=== PATIENT | male | born 1955 | race Caucasian/White ===

== ENCOUNTER → 2016-10-04 | Outpatient (CLI) | payer BC ==
[~2016-10-04] MED LIST: LISI40TA PO; MULT-506 PO; NAPR1TAB9 PO; SERT-234 PO; SIMV80TA2 PO
--- NOTE | 2016-10-05 06:06 | PAP/PSG TECHNICIAN REPORT ---
[facility] [employer] Polysomnogram Report Study name: None Report date: 10/05/2016 Study date: 10/04/2016 Referring Physician: DR. VALADEZ Name: ALEXA LUNA Interpreting Physician: Chidi Valadez D.O. Date of : 1955 [employer] Crewman: Dotty Tipton [facility]. Sex: Male Age: 61 StudyType: PSG PAP Weight: 238 lbs Height: 61 years, Height 5' 8" BMI: 36.18 Medications: ALEVE, LISINOPRIL 40 MG, SERTRALINE 100 MG, SIMVASTATIN Patient History 61 yr. old male here for a new titration sleep study. Patients PSG was done on 08/04/16 and had an AHI of 8.8, with significant PLM arousals. Parameters Monitored NPSG: E1-M2, E2-M1, Fp1-M2, Fp2-M1, F3-M2, F4-M2, F4-M1, C3-M2, C4-M2, C4-M1, O1-M2, O2-M2, O2-M1, T3-M2, T4-M1, P3-M2, P4-M1, CHIN1, CHIN2, HR, EKG, Legs, PFLOW, SNOR, FLOW, CFLOW, Tidal Volume, THOR, ABDO, SpO2, PLTH, CPRESS, ETCO2 Wave, ETCO2, pH Sleep Architecture Sleep Stages Time at Lights Off 9:14:24 PM STAGES Time (min.) TST (%) Time at Lights On 5:52:24 AM Wake 37.0 -- Total Recording Time (TRT) 518.50 min. N1 51.5 11 Total Sleep Period (TSP) 513.5 min. N2 234.5 49 Total Sleep Time (TST) 481.0min. N3 88.0 18 Awake Time 37.0 min. REM 107.0 22 Wake after Sleep Onset 32.5 min. Sleep Efficiency (SE) 93 % Sleep Onset Latency (DIANA) 4.5 min. Number of Stage 1 Shifts None Awakenings 20 Stage Changes 99 Number of REM periods 5 REM 107.0 22 REM Latency 270.0 min. NREM 374.0 78 Body Position Analysis Supine Right Left Side Prone Vertical Total Sleep Time (min.) 7.5 233.6 241.9 475.50 0.0 0.0 Total Sleep Time (%) 1% 49% 50% 99 0% N/A% Total Sleep Time REM (min.) 0.0 41.0 66.0 None 0.0 0.0 Total Sleep Time NREM (min.) 5.5 192.6 175.9 None 0.0 0.0 Intermittent Wake (min.) 2.0 10.5 24.5 None 0.0 0.0 Total Sleep Period (%) 1% None None None None None Arousals Myoclonus (PLM) * Events Count Index Events Count Index Spontaneous 1 0 Events Awake (PLMW) 54 87.6 Respiratory 0 0.0 Events Asleep w/ Arousal (PLMA) 36 4.5 PLM 36 4 Events Asleep w/o Arousal (PLMS) 260 32.4 Snoring 4 0 Total Asleep 296 36.9 Total 40 5 Total 350 41 Respiratory Analysis * CA OA MA CH H RERA Total Count 0 0 0 0 23 0 23 Index 0.0 0.0 0.0 0 2.9 0 2.9 Mean Duration 0.0 0.0 0.0 0.00 29.8 0.0 29.8 Longest Duration 0.0 0.0 0.0 0.00 0.0 0.0 56.1 Respiratory Event Summary Total Supine ~Supine Right Left Prone REM NREM Apneas Count 0 0 0 0 0 N/A 0 0 Index 0.0 0 0 0.0 0.0 N/A 0 0 Hypopneas (4% Desat) Count 23 0 23 2 21 N/A 16 7 Index 2.9 0.0 3 0.5 5.2 N/A 9.0 1.1 Apneas & All Hypopneas Count 23 0 23 2 21 N/A 16 7 Index 2.9 0 3 1 5 N/A 9.0 1.1 Respiratory Events ([employer] Of [employer]+All Hyp+RERA) Count 23 0 23 2 21 N/A 16 7 Index 2.9 0 3 0.5 5.2 N/A 9.0 1.1 Respiratory Related Arousal Count 0 0 0 0 0 N/A 0 0 Index 0.0 0 0 0 0 N/A 0 0 Snoring Analysis Supine Right Left Prone REM NREM Total Snore duration 29.4 min Snores count 0 790 619 N/A 322 1,087 1,409 Snore mean duration 1.3 Sec Snores index 0 203 154 N/A 180.6 174.4 175.8 TST with snoring (%) 6.1% Desaturation Event Summary: Minimum %SpO2 Event Count Mean/Min/Max Duration(sec.) Desaturation Index % Time In Bed > 90 25 30.5 / 10.3 / 51.5 6.1 50.1 86 - 90 13 18.3 / 6.8 / 44.3 3.2 49.8 81 - 85 0 N/A 0.0 0.1 76 - 80 0 N/A 0.0 0.0 71 - 75 0 N/A 0.0 0.0 66 - 70 0 N/A 0.0 0.0 61 - 65 0 N/A 0.0 0.0 56 - 60 0 N/A 0.0 0.0 51 - 55 0 N/A 0.0 0.0 < 50 0 N/A 0.0 0.0 Total REM NREM Awake <50% 0.0 min. 0.0 min. 0.0 min. 0.0 min. 51 - 60% 0.0 min. 0.0 min. 0.0 min. 0.0 min. 61 - 70% 0.0 min. 0.0 min. 0.0 min. 0.0 min. 71 - 80% 0.0 min. 0.0 min. 0.0 min. 0.0 min. 81 - 90% 245.0 min. 24.8 min. 212.5 min. 7.7 min. 91 - 100% 245.5 min. 82.2 min. 142.3 min. 20.9 min. Average 91 91 90 91 Minimum SpO2 84 84 85 87 Desaturation Event Index 3.4 10.1 1.3 4.9 # Desat. Events below 89% 19 12 6 1 Time(%) with Saturation below 89% 10.2 0.8 8.9 0.5 Time(min.) with Saturation below 89% 49.8 3.7 43.8 2.3 Time (mins) REM (mins) NREM (mins) % of TST SpO2 Below 90% 24 17 N7 26.1 SpO2 Below 88% 7 0 0 2 Heart Rate Analysis Min (bpm) Max (bpm) Average (bpm) Awake 45 89 73 NREM 46 127 61 REM 42 79 55 Overall 42 127 60 Supplemental O2 Values Minimum O2 level: None Value Start Time End Time [employer] Comments Mr. Luna slept in the right, left, and supine positions. Cardiac arrhythmia and PLMs noted. No bruxism noted. CPAP was initiated at +4 CMH2O room air and up-titrated to an optimal level of + 10 CMH2O Cflex 2, which nearly eliminated all respiratory events and snoring. The night was started using an Eson 2, and was switched to a Medium Simplus full face, he felt he was swallowing air with the nasal mask. Mr. Luna awoke to use the restroom once during the night. Mr. Luna stated, "I woke up a lot The final report will be interpreted and signed by a sleep physician. The completed physician report will then be placed in the patient medical record. Therapy Event: Therapy (cm H20) 4 5 6 7 8 9 10 Total Time at Pressure (min.) 90.0 29.5 87.4 80.1 14.4 28.0 188.6 TST at Pressure (min.) 81.0 29.5 66.9 78.6 14.4 28.0 182.6 # Periods 1 1 1 1 1 1 1 Sleep Onset (min.) 4.5 0.0 0.0 0.0 0.0 0.0 0.0 REM Onset (min.) N/A N/A N/A 67.6 0.0 0.0 0.0 Sleep Efficiency % 90 100 76 98 100 100 96 Wakefulness (%) 10.0 0.0 23.5 1.9 0.0 0.0 3.2 Wakefulness (min.) 9.0 0.0 20.5 1.5 0.0 0.0 6.0 NREM 1 (%) 16.1 1.7 17.0 12.6 0.0 3.6 5.6 NREM 1 (min.) 14.5 0.5 14.9 10.1 0.0 1.0 10.5 NREM 2 (%) 68.9 37.2 53.8 51.8 0.0 0.0 38.7 NREM 2 (min.) 62.0 11.0 47.0 41.5 0.0 0.0 73.0 NREM 3 (%) 5.0 61.1 5.7 18.1 0.0 0.0 24.4 NREM 3 (min.) 4.5 18.0 5.0 14.5 0.0 0.0 46.0 REM (%) 0.0 0.0 0.0 15.6 100.0 96.4 28.2 REM (min.) 0.0 0.0 0.0 12.5 14.4 27.0 53.1 # Arousals 6 2 15 5 0 1 11 Arousal Index 4.4 4.1 13.4 3.8 0.0 2.1 3.6 # Snore 75 193 348 316 88 142 247 Snore Index 55.6 392.9 312.0 241.2 366.9 304.3 81.2 AHI 0.7 2.0 0.9 6.9 25.0 6.4 0.7 AHI Supine N/A N/A 0.0 N/A N/A N/A N/A AHI Non-Supine 0.7 2.0 1.0 6.9 25.0 6.4 0.7 NREM AHI 0.7 2.0 0.9 0.9 N/A 60.0 0.9 REM AHI N/A N/A N/A 38.4 25.0 4.4 0.0 RDI 0.7 2.0 0.9 6.9 25.0 6.4 0.7 # Obstructive 0 0 0 0 0 0 0 # Central Ap 0 0 0 0 0 0 0 # Mixed 0 0 0 0 0 0 0 # Hypopneas 1 1 1 9 6 3 2 RERAS 0 0 0 0 0 0 0 Total Respiratory Events 1 1 1 9 6 3 2 Time Below SpO2 89.00% (min.) 6.7 9.3 23.3 2.1 2.0 0.0 4.1 Mean NREM SpO2 (%) 90 89 89 91 N/A 94 91 Mean REM SpO2 (%) N/A N/A N/A 90 91 92 92 Mean Sleep SpO2 (%) 90 89 89 91 91 92 91 Min NREM SpO2 (%) 87 85 86 88 N/A 91 86 Min REM SpO2 (%) N/A N/A N/A 84 86 90 89 Position Supine (min.) 0.0 0.0 5.5 0.0 0.0 0.0 0.0 Position Non-supine (min.) 81.0 29.5 61.4 78.6 14.4 28.0 182.6 LM Index Sleep 60.0 67.2 60.1 20.6 8.3 19.3 25.3 LM Index NREM 60.0 67.2 60.1 20.9 N/A 60.0 31.5 LM Index REM N/A N/A N/A 19.2 8.3 17.8 10.2 Mean Heart Rate (bpm) 64 63 68 65 62 58 53 Min Heart Rate (bpm) 59 58 58 55 53 50 42
--- NOTE | 2016-10-06 13:46 | POLYSOMNOGRAPH REPORT ---
The patient underwent an additional nocturnal polysomnogram on 10/04/2016. He previously had a sleep study done on the 04 of August that revealed an AHI of 8.8 with significant arousals with limb movements as well. He is referred by Dr. Corrales. This study is done to treat the obstructive sleep apnea with CPAP. Total recording time was 518.5 minutes. Total sleep period was 513.5 minutes with a total sleep time of 481 minutes. Wake after sleep onset was 32.5 minutes with a sleep efficiency of 93%. Sleep onset latency was very abrupt at 4.5 minutes. There were 99 sleep stage changes, 5 REM periods with REM latency of 270 minutes. Sleep stages included 11% N1, 49% N2, 18% N3 and 22% REM. There were 40 arousals during this study, 4 with snoring, 36 with limb movements, and 1 for nonspecific reasons. The patient was placed on CPAP and eventually was increased to CPAP of 10 with C-Flex of 2. He had 23 episodes of hypopnea with no other events noted. The AHI is 2.9. Lowest oxygen saturation was 84% during REM sleep. He spent 7 minutes with a saturation below 88%. With treatment, the AHI is 0.7 with an oxygen saturation of 92%. Bradycardia down to 42 beats per minute was noted during REM with a maximum heart rate of 89 beats per minute and an average of 73 beats per minute. The rhythm strips reveal a predominant normal sinus rhythm and occasional premature ventricular contraction with no sustained tachyarrhythmia noted. The patient states he slept fairly well and awakened once to use the restroom. I thought he awakened quite a bit at night as well. This study suggests the patient responds well to CPAP with a final setting of continuous positive airway pressure of 10 cm of water with C-Flex of 2. He was treated with a medium size Simplus full facemask. Considerable number of limb movements were noted as well (36) that caused arousals with arousal index of 4.5. This suggests he has periodic limb movement disorder. Often that will improve with the treatment with CPAP.
== END | disposition home or self-care (01) ==
LOC: C.NEUR 20:00
PROVIDERS: ATTEND Internal Medicine Pulmonary Disease
DX: G47.33 Obstructive sleep apnea (adult) (pediatric) (principal)

== ENCOUNTER → 2016-11-13 | Day surgery (SDC) | payer BC ==
[2016-11-06 11:40] VITALS: BMI 36.0
[~2016-11-13] VITALS: Ht 170.2 cm; Wt 106.8 kg
[~2016-11-13] MED LIST changes: +LIDOCAINE HCL 2% 2 ML VIAL (20MG/ML) ONE; +PROPOFOL IV EMULSION 10 MG/ML 20 ML VIAL IV ONE; +SODIUM CHLORIDE 0.9% 500ML 500 ML IV ONE
[2016-11-13 13:18] VITALS: Ht 170.2 cm; Wt 106.8 kg
--- NOTE | 2016-11-13 13:51 | Endo History and Physical ---
History & Physical Date of Service: Nov 13, 2016. Chief Complaint: screening Referring Physician: DR. CROUCH History of Present Illness 61 yo CM who presents for screening colonoscopy. Past Surgical History Hx Cardiac Surgery: No Hx Internal Defibrillator: No Hx Pacemaker: No Hx Abdominal Surgery: Yes (HERNIA REPAIR) Hx of Implantable Prosthesis: No Hx Post-Op Nausea and Vomiting: No Hx Cancer Surgery: No Hx Thoracic Surgery: No Hx Orthopedic: Yes (L/R TKA, LOW BACK SURGERY, L/R CTR, LT SHOULDER) Hx Urinary Tract Surgery: No Family History Colon CA Social History Smoking Status: Never Smoker Hx Substance Use: No Hx Alcohol Use: No Allergies Coded Allergies: No Known Allergies (Verified , 11/13/16) Current Medications Reported Home Medications Medications Dose Route/Sig Max Daily Dose Days Date Category Multivitamin (Multivitamins) Tab 1 Tab PO QAM 11/15/12 Reported Aleve (Naproxen) 220 Mg Tab 2 Tablets PO QAM PRN 12/01/08 Reported Zoloft (Sertraline HCl) 100 Mg Tab 1 Tab PO BID 12/01/08 Reported Zestril (Lisinopril) 40 Mg Tab 40 Mg PO HS 12/01/08 Reported Zocor (Simvastatin) 80 Mg Tab 80 Mg PO HS 12/01/08 Reported Vital Signs Weight (Kilograms): 106.82 Height (Feet): 5 Height (Inches): 7 Date Time Temp Pulse Resp B/P Pulse Ox O2 Delivery O2 Flow Rate FiO2 11/13/16 13:19 36.4 60 18 161/83 97 Room Air Physical Exam General Appearance: WD/WN, no apparent distress Respiratory/Chest: Auscultation: breath sounds normal Cardiovascular: Heart Auscultation: RRR Abdomen: Bowel Sounds: normal Inspection & Palpation: soft, non-distended, no tenderness, guarding & rebound Assessment and Plan Assessment: 61 yo CM who presents for screening colonoscopy. Plan: Proceed with colonoscopy.
--- NOTE | 2016-11-13 14:21 | Discharge Instructions ---
Endoscopy Patient Instructions Date / Procedure(s) Performed Nov 13, 2016. Colonoscopy Allergy Information Coded Allergies: No Known Allergies (Verified , 11/13/16) Discharge Date / Findings Nov 13, 2016. Diverticulosis Internal hemorrhoids Medication Instructions OK to resume all medications today as prescribed. Reported Home Medications Medications Dose Route/Sig Max Daily Dose Days Date Category Multivitamin (Multivitamins) Tab 1 Tab PO QAM 11/15/12 Reported Aleve (Naproxen) 220 Mg Tab 2 Tablets PO QAM PRN 12/01/08 Reported Zoloft (Sertraline HCl) 100 Mg Tab 1 Tab PO BID 12/01/08 Reported Zestril (Lisinopril) 40 Mg Tab 40 Mg PO HS 12/01/08 Reported Zocor (Simvastatin) 80 Mg Tab 80 Mg PO HS 12/01/08 Reported Provider Instructions Activity Restrictions - No exercising or heavy lifting for 24 hours. - Do not drink alcohol the day of the procedure. - Do not drive a car or operate machinery until the day after the procedure. - Do not make any important decisions or sign important papers in 24 hours after the procedure. Following Day: - Return to full activity which may include returning to work/school. Diet Start your diet with liquids and light foods (jello, soup, juice, toast). Then eat your usual diet if not nauseated. Treatment For Common After Affects For mild abdominal pain, bloating, or excessive gas: - Rest - Eat lightly - Lie on right side Follow-Up Information Follow-up with DR. CROUCH as scheduled Anesthesia Information What You Should Know You have had a procedure that required some medicine to reduce anxiety and discomfort. This treatment is called moderate sedation. After receiving the treatment, you may be sleepy, but you will be able to breathe on your own. The effects of the treatment may last for several hours. Follow these instructions along with Activity/Diet recommendations noted above: * Do NOT do anything where dizziness or clumsiness would be dangerous. * Rest quietly at home today, then you can be up and about tomorrow. * Have a responsible person stay with you the rest of today. * You may have had an I.V. today. If so, you may take the dressing off later today. Recommendations Call your doctor if: * Trouble breathing * Continuous vomiting for more than 24 hours * Temperature above 101 degrees * Severe abdominal pain or bloating * Pain not relieved by pain medicine ordered * There is increased drainage or redness from any incision * A large amount of rectal bleeding greater than 2-3 tablespoons. (If you had a polyp/s removed or have hemorrhoids, a small amount of blood - from the rectum is to be expected.) * You have any unanswered questions or concerns. IN THE EVENT OF A SERIOUS EMERGENCY, GO TO THE NEAREST EMERGENCY ROOM Your discharge instructions were prepared by provider Alberto Turner. Patient Instructions Signature Page Aniket Melvin Patient (or Guardian) Signature/Date: I have read and understand the instructions given to me by my caregivers. Caregiver/RN/Doctor Signature/Date: The above-named patient and/or guardian has received patient instructions on this date. + Original Patient Signature Page (only) stays with chart. Please make copy for patient.
--- NOTE | 2016-11-13 14:29 | GI REPORT ---
Procedure Date: 11/13/2016 1:52 PM Procedure: Colonoscopy Indications: Screening for colorectal malignant neoplasm Medicines: Monitored Anesthesia Care Complications: No immediate complications. Estimated Blood Loss: Estimated blood loss: none. Procedure: Pre-Anesthesia Assessment: - Prior to the procedure, a History and Physical was performed, and patient medications and allergies were reviewed. The patient's tolerance of previous anesthesia was also reviewed. The risks and benefits of the procedure and the sedation options and risks were discussed with the patient. All questions were answered, and informed consent was obtained. Prior Anticoagulants: The patient has taken no previous anticoagulant or antiplatelet agents. ASA Grade Assessment: II - A patient with mild systemic disease. After reviewing the risks and benefits, the patient was deemed in satisfactory condition to undergo the procedure. After I obtained informed consent, the scope was passed under direct vision. Throughout the procedure, the patient's blood pressure, pulse, and oxygen saturations were monitored continuously. The scope was introduced through the anus and advanced to the terminal ileum. The colonoscopy was performed without difficulty. The patient tolerated the procedure well. The quality of the bowel preparation was good. The terminal ileum, ileocecal valve, appendiceal orifice, and rectum were photographed. Findings: Multiple small-mouthed diverticula were found in the sigmoid colon. Non-bleeding internal hemorrhoids were found during retroflexion. The hemorrhoids were small. Impression: - Diverticulosis in the sigmoid colon. - Non-bleeding internal hemorrhoids. - No specimens collected. Recommendation: - Resume previous diet. - Continue present medications. - Repeat colonoscopy in 10 years for surveillance. - Return to primary care physician as previously scheduled. Alberto Turner, DO 11/13/2016 2:29:43 PM This report has been signed electronically. Note Initiated On: 11/13/2016 1:52 PM I attest to the content of the Intraoperative Record and orders documented therein, exceptions below
[2016-11-13 14:48] VITALS: BP 141/78; PULSE 56; O2SAT 96
--- NOTE | 2016-11-13 14:57 | Anesthesiology Progress Note ---
Anesthesia Post Op Note Date & Time Nov 13, 2016 at 14:57 Vital Signs Pain Intensity: 0 Vital Signs Past 12 Hours Date Time Temp Pulse Resp B/P Pulse Ox O2 Delivery O2 Flow Rate FiO2 11/13/16 14:48 56 16 141/78 96 Room Air 11/13/16 14:33 61 16 127/75 96 Room Air 11/13/16 14:18 60 14 113/63 94 Room Air 11/13/16 13:19 36.4 60 18 161/83 97 Room Air Notes Mental Status: alert / awake / arousable, participated in evaluation Pt Amnestic to Procedure: Yes Nausea / Vomiting: adequately controlled Pain: adequately controlled Airway Patency, RR, SpO2: stable & adequate BP & HR: stable & adequate Hydration State: stable & adequate Anesthetic Complications: no major complications apparent
== END | disposition home or self-care (01) ==
LOC: C.GI 13:06
PROVIDERS: ATTEND Internal Medicine
DX: Z12.11 Encounter for screening for malignant neoplasm of colon (principal); Z80.0 Family history of malignant neoplasm of digestive organs; K57.30 Diverticulosis of large intestine without perforation or abscess without bleeding; K64.8 Other hemorrhoids; Z98.890 Other specified postprocedural states

== ENCOUNTER → 2017-09-14 | Outpatient (CLI) | payer BC ==
[~2017-09-14] MED LIST changes: -LIDOCAINE HCL 2% 2 ML VIAL (20MG/ML) ONE; -PROPOFOL IV EMULSION 10 MG/ML 20 ML VIAL IV ONE; -SODIUM CHLORIDE 0.9% 500ML 500 ML IV ONE
--- NOTE | 2017-09-14 11:23 | DIAGNOSTIC IMAGING REPORT ---
CHEST 2 VIEWS ROUTINE HISTORY: 62 years-old Male R05 [id number] Chronic obstructive [id number] COPD with acute cough COMPARISON: Chest CT 04/06/2015, chest radiograph 03/15/2014 TECHNIQUE: PA and lateral views of the chest FINDINGS: Cardiac mediastinal and hilar silhouettes are within normal limits. Linear subsegmental bibasilar opacities are noted without pneumothorax, pleural effusion or lobar airspace consolidation. No overt pulmonary edema. Bones of the chest are grossly intact. Multilevel endplate spurring of the spine. IMPRESSION: Linear subsegmental bibasilar opacities suggest atelectasis and/or scarring. The above report was generated using voice recognition software. It may contain grammatical, syntax or spelling errors. Electronically signed by: Ari Leon M.D. 09/14/2017 11:22 AM Dictated Date/Time: 09/14/2017 11:21 AM
== END | disposition home or self-care (01) ==
LOC: C.RAD1850 10:39
PROVIDERS: ATTEND Internal Medicine Pulmonary Disease
DX: J44.9 Chronic obstructive pulmonary disease, unspecified (principal); R05 Cough

== ENCOUNTER → 2017-10-08 | Outpatient (CLI) | payer OTHER ==
--- NOTE | 2017-10-08 18:07 | DIAGNOSTIC IMAGING REPORT ---
ORBITS FOR MRI HISTORY: Pre-MRI pre-MRI screening. COMPARISON: None. FINDINGS: There are no radiopaque foreign bodies identified within the orbits. IMPRESSION: No radiopaque foreign bodies identified within the orbits. The above report was generated using voice recognition software. It may contain grammatical, syntax or spelling errors. Electronically signed by: Aldo Santos M.D. 10/08/2017 6:05 PM Dictated Date/Time: 10/08/2017 6:05 PM
--- NOTE | 2017-10-08 19:18 | DIAGNOSTIC IMAGING REPORT ---
CERVICAL WITHOUT CONTRAST HISTORY: Pain. Neuropathy. R20.0 Numbness TECHNIQUE: Multiplanar multisequence MRI of the cervical spine was performed without the use of contrast. COMPARISON STUDY: None. FINDINGS: Normal signal characteristics of the vertebral bodies. Moderate degenerative disc signal throughout the entire cervical region. Multilevel bulging disc based on the sagittal images. C2-C3: Mild broad-based right central bulging disc. Mild narrowing right neuroforamina. No significant impact upon the cervical cord. C3-C4: Broad-based bulging disc showing contact with but no deformity of the cervical cord. Significant narrowing of the neuroforamina bilaterally. C4-C5: Broad-based bulging disc with significant osteophytic narrowing of the neuroforamina bilaterally. C5-C6: Mild left central disc herniation with minimal impact left anterior cervical cord. Significant narrowing of the neuroforamina bilaterally. C6-C7: Broad-based bulging disc showing no significant impact with cervical cord. Moderate narrowing of the neuroforamina bilaterally. C7-T1: Minimal osteophytic narrowing of the neuroforamina bilaterally. IMPRESSION: 1. Broad-based bulging discs and/or mild disc herniations at virtually all levels of the cervical spine. 2. No evidence for a major disc herniation. 3. Multifactorial narrowing of the bulk of the neuroforamina bilaterally which is considered significant at multiple levels. Correlation with neurologic analysis and or EMG is suggested. The above report was generated using voice recognition software. It may contain grammatical, syntax or spelling errors. Electronically signed by: Aldo Santos M.D. 10/08/2017 7:17 PM Dictated Date/Time: 10/08/2017 7:14 PM
== END | disposition home or self-care (01) ==
LOC: C.MRI 17:32
PROVIDERS: ATTEND Internal Medicine
DX: M48.00 Spinal stenosis, site unspecified (principal); Z87.821 Personal history of retained foreign body fully removed; R20.0 Anesthesia of skin

== ENCOUNTER → 2018-04-16 | Outpatient (CLI) | payer OTHER ==
[2018-04-16 09:26] LABS: BASO % 0.3 %; BASO ABS # 0.02 K/uL (0-0.2); EOS % 1.7 %; HEMATOCRIT 41.5 % (42-52); HEMOGLOBIN 13.1 g/dL (14.0-18.0); IG# 0.02 K/uL (0.00-0.02); LYMPH % 23.9 %; MEAN CELL VOLUME 89.6 fL (80-100); MEAN CORPUSCULAR HEMOGLOBIN 28.3 pg (25-34); MEAN CORPUSCULAR HGB CONC 31.6 g/dl (32-36); MEAN PLATELET VOLUME 10.7 fL (7.4-10.4); MONO % 5.6 %; MONO ABS # 0.33 K/uL (0.11-0.59); NEUT % 68.2 %; PLATELET COUNT 123 K/uL (130-400); RED CELL DISTRIBUTION WIDTH CV 14.6 % (11.5-14.5); RED CELL DISTRIBUTION WIDTH SD 47.8 fL (36.4-46.3); WHITE BLOOD COUNT 5.87 K/uL (4.8-10.8)
--- NOTE | 2018-04-16 12:00 | DIAGNOSTIC IMAGING REPORT ---
BONE SCAN 3 PHASE LIMITED CLINICAL HISTORY: 62 years-old Male presenting with HX LT KNEE REPLACEMENT, R/O ASEPTIC LOOSENING. TECHNIQUE: Following the IV administration of 26.7 mCi of technetium 99m MDP, three-phase bone scan of the knees was performed. Anterior flow images as well as anterior and posterior blood pool phase images were acquired. Bone phase imaging of knees was performed at three hours in multiple obliquities. COMPARISON: None. FINDINGS: On initial flow imaging, symmetric radiotracer distribution in the vasculature. Photopenic defects in the knees. Subtle asymmetric soft tissue hyperemia in the left knee. On subsequent blood pool phase imaging, significant asymmetric periarticular radiotracer avidity at the left knee in comparison to the right. On bone phase imaging, asymmetric greater radiotracer avidity surrounding the left knee prosthesis in comparison to the right knee prosthesis. This is most evident on anterior and posterior projections. Periarticular radiotracer distribution involves both the femoral and tibial components. IMPRESSION: Three-phase positive bone scan concerning for loosening or infection at the left total knee prosthesis. These could be differentiated with a sulfur colloid nuclear medicine scan of the knees to assess for marrow replacement process. Electronically signed by: Don Marsh M.D. 04/16/2018 11:59 AM Dictated Date/Time: 04/16/2018 11:54 AM
== END | disposition home or self-care (01) ==
LOC: C.NUCL 07:59
DX: Z96.652 Presence of left artificial knee joint (principal)

== ENCOUNTER 2018-11-18 08:28 | Inpatient (IN) ==
--- NOTE | 2018-11-05 15:34 | PAT Medication Instructions ---
Medication Instructions Date of Service November 05, 2018 Home Medications lisinopril 40 mg PO QPM multivitamin 1 tab PO QAM naproxen sodium [Aleve] 440 mg PO BID PRN sertraline 100 mg PO QPM [id number] mg PO QPM ASK your surgeon for instructions naproxen sodium [Aleve] 440 mg PO BID PRN DO NOT take the morning of surgery multivitamin 1 tab PO QAM Take evening before surgery sertraline 100 mg PO QPM [id number] mg PO QPM lisinopril 40 mg PO QPM Other Notes If you have any questions please call us at [phone] or [phone] or [phone] or [phone]
--- NOTE | 2018-11-08 09:12 | Anesthesiology Consultation ---
Date of Service November 08, 2018 Assessment & Plan (1) Encounter for pre-operative examination: Chart Review Chart Review: Acceptable Risk for Surgery and Patient seen in Pre Admission Testing Teaching & Discussion Pre-Anesthesia Teaching/Discussion Notes: Instructed NPO after midnight before surgery,except medications with 15 cc of water. Medication instructions provided according to the PAT guidelines. History Surgery Operation Date: 11/18/18 08:00 Proposed Procedures p Left Total Knee Revision - Iván Weller MD Height/Weight Height: 5 ft 8 in Weight: 117.7 kg Allergies Allergy/AdvReac Type Severity Reaction Status Date / Time No Known Allergies Allergy Unknown Verified 11/04/18 11:37 Medications Home Medications Medication Instructions Recorded Confirmed Last Taken lisinopril 40 mg PO QPM 11/04/18 11/04/18 Unknown multivitamin 1 tab PO QAM 11/04/18 11/04/18 Unknown naproxen sodium [Aleve] 440 mg PO BID PRN 11/04/18 11/04/18 Unknown sertraline 100 mg PO QPM 11/04/18 11/04/18 Unknown simvastatin 80 mg PO QPM 11/04/18 11/04/18 Unknown Past Medical History Medical History Depression High cholesterol Hypertension Obesity Sleep apnea CPAP- PATIENT ADVISED TO BRING DEVICE DOS Past Surgical History Surgical History History of back surgery History of carpal tunnel release of both wrists History of knee replacement, total B/L History of umbilical hernia repair Hx of repair of rotator cuff LEFT Past Anesthesia History No Family Hx of Anesthesia Complications and Other Slow to wake; no known history of reintubation. History of PONV No Motion Sickness Screening History of Motion Sickness: No Social History Smoking Status: Never smoker Do You Dip or Chew Tobacco: No Hx Alcohol Use: Yes Alcohol type: hard liquor alcohol intake frequency: a few times a month Hx Substance Use: No Exercise / Class Metabolic Activity III < 4 Walking/Shop/Light housework Review of Systems Occasional reflux. Patient denies chest pain, shortness of breath, cough, wheezing, palpitations. Physical Exam Vital Signs VITALS BP 168/82 P 60 TEMP 97.7 SP02 97%RA RESP 18 PHYSICAL Full neck and c-spine range of motion. Full TMJ range of motion. TMD 4 finger breaths Mallampati Score 2 Dentition: intact, crowns on molars Lungs: clear throughout to auscultation Cardiac: regular rate and rhythm, no murmurs noted Spine: normal Carotid arteries: negative bruit Extremities: no edema Testing Electrocardiogram Date: 11/08/18 SB at 57bpm. NS IVCD. Chest X-Ray Date: 11/08/18 Findings: + NAD There is mild thickening of the minor fissure versus perifissural atelectasis. There are minor atelectatic changes at the left lung base. Laboratory Results Blood Type O Positive 11/08/18 09:33 Antibody Screen NEGATIVE 11/08/18 09:33 PT 10.2 Seconds (9.0-12.0) 11/08/18 09:34 INR 1.0 (0.9-1.1) 11/08/18 09:34 APTT 27.6 Seconds (21.0-31.0) 11/08/18 09:34 Urine Color Dark Yellow 11/08/18 09:33 Urine Appearance Clear (Clear) 11/08/18 09:33 Urine pH 8.0 (4.5-7.5) H 11/08/18 09:33 Ur Specific Mason 1.022 (1.000-1.030) 11/08/18 09:33 Urine Protein Negative (Negative) 11/08/18 09:33 Urine Glucose (UA) Negative (Negative) 11/08/18 09:33 Urine Ketones Negative (Negative) 11/08/18 09:33 Urine Nitrite Negative (Negative) 11/08/18 09:33 Ur Leukocyte Esterase Negative (Negative) 11/08/18 09:33 10/29/18 WBC 5.8 H/H 13.2/40.2 PLATELETS 117 SODIUM 140 POTASSIUM 4.5 CHLORIDE 105 CO2 30 BUN 17 CREATININE 0.81 GLUCOSE 104
--- NOTE | 2018-11-08 09:55 | XRay Report ---
XR chest Pre-admission PA/Lat CLINICAL HISTORY: Preoperative chest COMPARISON STUDY: 09/14/2017 FINDINGS: The cardiac and mediastinal contours remain stable. There is mild thickening of the minor f issure versus perifissural atelectasis. There are minor atelectatic changes at the left lung base. Th ere is no lobar consolidation. There is no failure. There are no pleural effusions. IMPRESSION: No active disease in the chest. Electronically signed by: Otf Akers M.D. 11/08/2018 9:54 AM
[2018-11-08 10:24] LABS: Appearance Urine Clear (Clear); Bilirubin Urine Negative (Negative); Color Urine Dark Yellow; Glucose Urine UA Negative (Negative); Ketones Urine Negative (Negative); Leukocyte Esterase Urine Negative (Negative); Nitrite Urine Negative (Negative); Protein Urine Negative (Negative); Specific Gravity Urine 1.022 (1.000-1.030); Urobilinogen Urine Negative (Negative)
[2018-11-08 10:41] LABS: Partial Thromboplastin Ratio 1.1; Partial Thromboplastin Time 27.6 Seconds (21.0-31.0); Prothrombin Time 10.2 Seconds (9.0-12.0)
--- NOTE | 2018-11-17 10:20 | History and Physical Report ---
DATE OF ADMISSION: 11/18/2018 CHIEF COMPLAINT: Left knee pain status post total knee arthroplasty. HISTORY OF PRESENT ILLNESS: The patient is a 63-year-old gentleman presented for evaluation of his left knee pain and disability. He had a total knee arthroplasty approximately 10 years ago. X-rays revealed concern for possible loosening. He had no signs of an infectious process. He had blood work and a bone scan ordered. The blood work was negative and the bone scan was suggestive of probable aseptic loosening. He is now scheduled for an excisional arthroplasty and revision total knee arthroplasty. PAST MEDICAL HISTORY: Hypertension, hypercholesterolemia, depression, obesity. PAST SURGICAL HISTORY: Bilateral knee replacements. MEDICATIONS: Zocor 80 mg daily, Zoloft 100 mg daily, and Zestril 20 mg daily. ALLERGIES: No known drug allergies. SOCIAL HISTORY AND REVIEW OF SYSTEMS: Noncontributory. PHYSICAL EXAMINATION: GENERAL: Well-nourished, well-developed elderly male who appears stated age. HEENT: Normocephalic, atraumatic, extraocular movements intact, oropharynx pink and moist. NECK: Supple without adenopathy. LUNGS: Clear to auscultation bilaterally. HEART: Regular rate and rhythm. ABDOMEN: Soft, nontender, nondistended. EXTREMITIES: The upper extremities are within normal limits. The left knee has a well-healed midline incision from his previous arthroplasty. His range of motion is from 0-120 degrees. He has mild discomfort with range of motion. X-RAYS: X-rays and a bone scan were reviewed. There is evidence of lucency about both the tibial and femoral components on the plain x-rays. There is no gross deformity. The bone scan shows increased uptake about both the femoral and tibial components suggestive of aseptic loosening. ASSESSMENT: Left total knee arthroplasty, aseptic loosening. PLAN: Risks versus benefits were discussed. Consent was obtained. Again, patient had a negative sed rate and CRP. There is no evidence of an infectious process. We will proceed with excisional arthroplasty and total knee revision as indicated.
[~2018-11-18 08:28] MED LIST changes: +ACETAMINOPHEN 500 MG TAB PO SCH; +BUPIVACAINE 0.5 % 5 MG/1 ML PF 10ML VIAL ONE; +CEFAZOLIN 2000MG 2,000 MG/15 ML SYR IV SCH; +CeleBREX 200 MG CAP PO SCH; +FAMOTIDINE 20 MG TAB PO SCH; +GABAPENTIN 300 MG x 2 PO SCH; -LISI40TA PO; +METOCLOPRAMIDE HCL 10 MG TABLET PO SCH; -MULT-506 PO; -NAPR1TAB9 PO; +ROPIVACAINE 0.5% 5 MG/ML 30 ML VIAL ONE; +ROPIVACAINE 0.5% HCL/PF 150 MG, BUPIVACAINE 0.5% MPF 30 ML, EPINEPHrine 30MG/30ML (OR U... INFIL SCH; -SERT-234 PO; -SIMV80TA2 PO; +TRANEXAMIC ACID 1,000 MG **IV Intra-op IV SCH; +TRANEXAMIC ACID 1,000 MG **IV Pre-op IV SCH; +dexAMETHasone 4 MG TAB PO SCH
[2018-11-18] MEDS: LR 500ML BOLUS, THEN 15ML/HR IV SCH ×3 (09:13→17:22)
[2018-11-18] MEDS ORDERED: MIDAZOLAM HCL 1 MG/ML 2ML VIAL ONE (09:24)
[2018-11-18] MEDS ORDERED: fentaNYL citrate 100 MCG/2 ML VIAL ONE (09:25)
[2018-11-18] MEDS ORDERED: LIDOCAINE HCL 2% 2 ML VIAL/AMP(20MG/ML) INFIL ONE (09:49)
[2018-11-18] MEDS ORDERED: PROPOFOL IV EMULSION 10 MG/ML 20 ML VIAL IV ONE ×2 (09:49→13:18)
[2018-11-18] MEDS ORDERED: ePHEDrine sulfate 50 MG/ML AMP IV PRN (10:03)
[2018-11-18] MEDS ORDERED: ATROPINE SULFATE 0.1 MG/ML 10ML SYR IV PRN (10:03)
[2018-11-18] MEDS ORDERED: fentaNYL citrate 100 MCG/2 ML VIAL IV PRN (10:03)
[2018-11-18] MEDS ORDERED: ONDANSETRON INJ 2 MG/ML 2 ML VIAL IV PRN ×2 (10:03→15:50)
--- NOTE | 2018-11-18 10:20 | History & Physical Bridge Note ---
Date of Service November 18, 2018 History & Physical Bridge Note I have examined the patient, reviewed the History & Physical and in the interval since the performance of the History & Physical I have noted the following changes of clinical significance: no changes noted
[2018-11-18] MEDS ORDERED: BACITRACIN INJ 50,000 UNIT VIAL ONE (10:35)
[2018-11-18] MEDS ORDERED: POVIDONE-IODINE OP SOLN 30 ML BTL ONE (10:35)
[2018-11-18] MEDS ORDERED: ORTHO JOINT ANESTHETIC ONE (10:35)
[2018-11-18] MEDS ORDERED: PHENYLEPHRINE 100MCG/ML 5ML SYR ONE (11:59)
--- NOTE | 2018-11-18 13:32 | Operative Report ---
Post Operative Report Pre & Post Diagnosis Operation Date: 11/18/18 11:25 Pre-Op Diagnosis: Left Knee Aseptic Loosening Post-Op Diagnosis: Left Knee Aseptic Loosening Procedure Operation Date: 11/18/18 11:25 Actual Procedures p Left Total Knee Revision(Left) - Iván Weller MD Surgeon Iván Weller MD Tobacco Sprayer Daquan Estimated Blood Loss 100 Findings Consistent with Post-Op Diagnosis Specimens Total knee components Complications none Disposition Accompanied Patient To Recovery: No Disposition: Recovery Room Indications Knee pain and loosening Description of Procedure Patient's left leg was prepped and draped in usual sterile manner. Limb was exsanguinated with an Esmarch bandage and tourniquet was inflated to 300 mmHg. Previously made incision was reopened and subcutaneous tissue sharply dissected less closed with hemostasis. Previous medium parapatellar incision was reopened and the complete synovectomy was carried out using sharp dissection. A lateral step was utilized attention was first turned to the femur where it was undermined using a flexible osteotome and using a bone tamp and mallet the femoral component was dislodged and removed. Patella was inspected and was found to be without evidence of loosening stenosis and significant where this was obtained. Tibia was presented anteriorly using blunt troponins and was found grossly loose. It was removed easily with just slight undermining of the muscle and soft. The drill was used to penetrate the cement plug and cement removal commenced using osteotome mallet and pituitary rongeur. Following this sequential reamings were taken up to size 15 on the tibial side size 16 on the femoral side which was incised to be used. The tibia appears prepared first with cleanup cut and then a box drill over the last reamer the decision to be offset the stem by 2 mm was made in the punch and mallet and drill used to prepare the tibia. The trial tibial component was assembled and impacted in the position. Next attention was turned to the femur where a size 4 femoral component was chosen size to be used was pinned in position and decision was made to go with a 15 mm distal augments and a posterior trial femoral component was assembled after cutting the block and opening the notch with appropriate oscillating saw. The trial component was then assembled with a 50 mm distal augments trial reduction was carried out in size 9 mm tibial poly-was chosen. The patella tracked quite well. Trials were all removed final components were assembled on the back table and torqued 3 packs of antibiotic cement were mixed first the tibial component was impacted into position. Excess cement was removed femoral component was then impacted in position and excess cement was removed the knee was held in extension while cement hardened. The posterior stabilized tibial poly-was utilized 9 mm in thickness. Final irrigation was carried out joint injection was utilized Betadine soap was utilized and the extensor mechanism was closed with nonabsorbable suture subcutaneous tissue was closed using 0 Dexon skin was closed with sonya. Sterile dressing of Adaptic 4 x 4's ABDs sterile Webril umbilicus applied. The patient tolerated the procedure well. Mr. Vargas was utilized to all portions of case including positioning prepping draping surgical assistance wound closure and dressing application. I attest to the content of the Intraoperative Record and any orders documented therein. Any exceptions are noted below.
--- NOTE | 2018-11-18 14:38 | Anesthesiology Progress Note ---
Date of Service November 18, 2018 Anesthesia Post Procedure Vital Signs Vital Signs: Temp Pulse Pulse Pulse Resp BP BP 11/18/18 14:25 73 21 121/71 11/18/18 14:22 73 13 11/18/18 14:20 74 22 119/72 11/18/18 14:12 98.2 F 75 16 131/61 11/18/18 09:18 97.7 F 66 20 151/85 H Pulse Ox 11/18/18 14:25 93 11/18/18 14:22 94 11/18/18 14:20 94 11/18/18 14:12 99 11/18/18 09:18 97 Pain Intensity Left Knee: Pain Intensity: 0 Notes Mental Status: alert / awake / arousable and participated in evaluation Patient Amnestic to Procedure: Yes Nausea / Vomiting: adequately controlled Pain: adequately controlled Airway Patency, RR, SpO2: stable & adequate BP & HR: stable & adequate Hydration State: stable & adequate Neuraxial Anesthesia: was administered and sensory block is resolving Anesthetic Complications: no major complications apparent and Pt Satisfied with anesthetic care
--- NOTE | 2018-11-18 14:39 | XRay Report ---
TWO VIEWS LEFT KNEE CLINICAL HISTORY: Postoperative examination. FINDINGS: AP and crosstable lateral portable views of the left knee are obtained. A left knee arthrop lasty is in near anatomic alignment. There are long tibial and femoral stems. There has been undersur face remodeling of the patella. No acute fracture is seen. There are expected postoperative changes a round the knee including a surgical drain, soft tissue edema, and subcutaneous gas. IMPRESSION: Expected postoperative changes status post left knee arthroplasty. No acute fracture is s een. Electronically signed by: Tray Conner M.D. 11/18/2018 2:38 PM
[2018-11-18] MEDS ORDERED: ALUMINUM/MAGNESIUM SUSP 30 ML UDC PO PRN (15:50)
[2018-11-18] MEDS ORDERED: TAMSULOSIN HCL 0.4 MG CAP PO PRN (15:50)
[2018-11-18] MEDS ORDERED: NALOXONE HCL 0.4 MG/1 ML VIAL/CARP IV PRN (15:50)
[2018-11-18] MEDS ORDERED: MAGNESIUM HYDROXIDE SUSP 30 ML UDC PO PRN (15:50)
[2018-11-18] MEDS ORDERED: BISACODYL 10 MG SUPP PR PRN (15:50)
[2018-11-18] MEDS ORDERED: METOCLOPRAMIDE HCL INJ 5 MG/ML 2 ML VIAL IV PRN (15:50)
[2018-11-18] MEDS ORDERED: HYDROmorphone INJ 1 MG/ML SYRINGE IV PRN (15:50)
[2018-11-18] MEDS ORDERED: SODIUM CHLORIDE 0.9% 1000ML 1,000 ML IV SCH (16:00)
[2018-11-18] MEDS: OXYCODONE HCL IR 5 MG TAB (IMMEDIATE RELEASE) PO PRN ×2 (17:30→21:22)
[2018-11-18] MEDS: KETOROLAC TROMETHAMINE 15 MG/ML VIAL IV SCH ×2 (17:30→23:52)
[2018-11-18] MEDS: FERROUS GLUCONATE 324 MG TAB PO SCH (17:31)
[2018-11-18] MEDS: ASCORBIC ACID 500 MG TAB PO SCH (17:31)
[2018-11-18] MEDS ORDERED: LISINOPRIL 40 MG TAB PO SCH (21:00)
[2018-11-18] MEDS ORDERED: SERTRALINE HCL 50 MG TABLET PO SCH (21:00)
[2018-11-18] MEDS ORDERED: SIMVASTATIN 80 MG TAB PO SCH (21:00)
[2018-11-18] MEDS ORDERED: SENNA 8.6 MG TAB PO SCH (21:00)
[2018-11-18] MEDS: CEFAZOLIN 2000MG 2,000 MG/15 ML SYR IV SCH (21:19)
[2018-11-18] MEDS: DOCUSATE SODIUM 100 MG CAP PO SCH (21:20)
[2018-11-18] MEDS: ACETAMINOPHEN 500 MG TAB PO SCH (21:21)
[2018-11-19] MEDS: OXYCODONE HCL IR 5 MG TAB (IMMEDIATE RELEASE) PO PRN (03:38)
[2018-11-19] MEDS: CEFAZOLIN 2000MG 2,000 MG/15 ML SYR IV SCH (03:43)
[2018-11-19] MEDS: ACETAMINOPHEN 500 MG TAB PO SCH (05:18)
[2018-11-19] MEDS: KETOROLAC TROMETHAMINE 15 MG/ML VIAL IV SCH ×2 (05:18→11:12)
[2018-11-19 06:41] LABS: Albumin Level 2.9 gm/dl (3.4-5.0); BUN Creatinine Ratio 19.8 (10-20); Bilirubin Direct 0.1 mg/dl (0-0.2); Calcium 8.1 mg/dl (8.5-10.1); Creatinine Clr Calc Pharmacy 93.3 ml/min; Est GFR (African American) 92.9; Est GFR (Non-African American) 80.2; Potassium 4.2 mmol/L (3.5-5.1)
[2018-11-19 06:44] LABS: Bilirubin,Total 0.5 mg/dl (0.2-1); Total Protein 5.9 gm/dl (6.4-8.2)
[2018-11-19 06:57] LABS: Hematocrit (blood only) 32.5 % (42-52); Hemoglobin 10.6 g/dL (14.0-18.0); Mean Corpuscular Hgb Conc 32.6 g/dL (32-36); Mean Corpuscular Volume 88.1 fL (80-100); Mean Platelet Volume 10.2 fL (7.4-10.4); Platelet Count 93 K/uL (130-400); RDW Coefficient of Variation 14.3 % (11.5-14.5); RDW Standard Deviation 46.2 fL (36.4-46.3); Red Blood Count 3.69 M/uL (4.7-6.1); White Blood Count 11.58 K/uL (4.8-10.8)
--- NOTE | 2018-11-19 07:40 | Orthopedic Progress Note ---
Date of Service November 19, 2018 Assessment & Plan (1) Status post revision of total replacement of left knee: 63 yo male stable POD #1 s/p left TKA revision 1. Med management 2. DVT prophylaxis- Xarelto, SCDs 3. PT/OT 4. D/C planning- home w/ HH Subjective Pt resting in bed, pain conrolled, denies complaints Physical Exam 2 Vital Signs (Past 24 Hours): Last Vital Signs Temp 36.5 C 11/19/18 07:15 Pulse 62 11/19/18 07:15 Resp 19 11/19/18 07:15 BP 114/65 11/19/18 07:15 Pulse Ox 93 11/19/18 07:15 Physical Exam: Toes mobile, N/V/I, dressing and drain in place, prevena in place Results & Data Laboratory Results 11/19/18 11/19/18 Range/Units 05:50 05:50 WBC 11.58 H (4.8-10.8) K/uL RBC 3.69 L (4.7-6.1) M/uL Hgb 10.6 L (14.0-18.0) g/dL Hct 32.5 L (42-52) % MCV 88.1 (80-100) fL MCH 28.7 (25-34) pg MCHC 32.6 (32-36) g/dL RDW Std Deviation 46.2 (36.4-46.3) fL RDW Coeff of Bebe 14.3 (11.5-14.5) % Plt Count 93 L (130-400) K/uL MPV 10.2 (7.4-10.4) fL Platelet Estimate Decreased (Normal) Sodium 136 (136-145) mmol/L Potassium 4.2 (3.5-5.1) mmol/L Chloride 105 (98-107) mmol/L Carbon Dioxide 25 (21-32) mmol/L Anion Gap 6.0 (3-11) BUN 20 H (7-18) mg/dl Creatinine 0.99 (0.6-1.4) mg/dl Est Cr Clr Drug Dosing 93.3 ml/min Est GFR ( Amer) 92.9 Est GFR (Non-Af Amer) 80.2 BUN/Creatinine Ratio 19.8 (10-20) Glucose 129 H (70-99) mg/dl Calcium 8.1 L (8.5-10.1) mg/dl Total Bilirubin 0.5 (0.2-1) mg/dl Direct Bilirubin 0.1 (0-0.2) mg/dl AST 23 (15-37) U/L ALT 22 (12-78) U/L Alkaline Phosphatase 79 (45-117) U/L Total Protein 5.9 L (6.4-8.2) gm/dl Albumin 2.9 L (3.4-5.0) gm/dl
[2018-11-19] MEDS ORDERED: dexAMETHasone 10 MG in SYRINGE 0 ML IV SCH (08:00)
[2018-11-19] MEDS: DOCUSATE SODIUM 100 MG CAP PO SCH (08:37)
[2018-11-19] MEDS: ASCORBIC ACID 500 MG TAB PO SCH (08:38)
[2018-11-19] MEDS: FERROUS GLUCONATE 324 MG TAB PO SCH (08:38)
--- NOTE | 2018-11-19 08:46 | Anesthesiology Progress Note ---
Date of Service November 19, 2018 Anesthesia Post Procedure Vital Signs Vital Signs: Temp Pulse Pulse Pulse Resp BP BP 11/19/18 07:15 36.5 C 62 19 114/65 11/19/18 03:29 37.1 C 64 16 120/70 11/18/18 23:16 37.0 C 74 16 118/65 11/18/18 19:27 36.8 C 71 18 143/70 H 11/18/18 17:36 69 18 133/78 11/18/18 16:37 67 16 129/78 11/18/18 16:06 65 16 125/72 11/18/18 15:30 37.1 C 75 16 119/66 11/18/18 15:20 71 20 118/72 11/18/18 15:16 79 12 120/64 11/18/18 15:15 73 15 11/18/18 15:10 91 H 12 124/58 L 11/18/18 15:05 73 13 118/65 11/18/18 15:00 74 22 111/71 11/18/18 14:55 71 16 113/70 11/18/18 14:50 71 18 117/71 11/18/18 14:45 77 16 113/66 11/18/18 14:40 76 23 126/71 11/18/18 14:39 36.7 C 11/18/18 14:35 69 20 122/64 11/18/18 14:30 74 23 117/70 11/18/18 14:25 73 21 121/71 11/18/18 14:22 73 13 11/18/18 14:20 74 22 119/72 11/18/18 14:12 36.8 C 75 16 131/61 11/18/18 09:18 36.5 C 66 20 151/85 H Pulse Ox 11/19/18 07:15 93 11/19/18 03:29 93 11/18/18 23:16 92 11/18/18 19:27 93 11/18/18 17:36 97 11/18/18 16:37 96 11/18/18 16:06 94 11/18/18 15:30 93 11/18/18 15:20 92 11/18/18 15:16 94 11/18/18 15:15 93 11/18/18 15:10 94 11/18/18 15:05 94 11/18/18 15:00 93 11/18/18 14:55 93 11/18/18 14:50 93 11/18/18 14:45 94 11/18/18 14:40 94 11/18/18 14:39 94 11/18/18 14:35 95 11/18/18 14:30 94 11/18/18 14:25 93 11/18/18 14:22 94 11/18/18 14:20 94 11/18/18 14:12 99 11/18/18 09:18 97 Pain Intensity Left Knee: Pain Intensity: 0 Notes Mental Status: alert / awake / arousable and participated in evaluation Patient Amnestic to Procedure: Yes Nausea / Vomiting: adequately controlled Pain: adequately controlled Airway Patency, RR, SpO2: stable & adequate BP & HR: stable & adequate Hydration State: stable & adequate Neuraxial Anesthesia: was administered, sensory block resolved and see Notes below (pt concerned about numbness in foot on operative side, not present on other foot, reassured pt. not from spinal, most likely from retraction durning procedure) Anesthetic Complications: no major complications apparent and Pt Satisfied with anesthetic care
[2018-11-19] MEDS ORDERED: MULTIVITAMIN TAB PO SCH ×2 (09:00)
[2018-11-19] MEDS ORDERED: RIVAROXABAN 10 MG TABLET PO SCH (14:00)
--- NOTE | 2018-11-24 19:22 | Discharge Summary ---
CHIEF COMPLAINT: Aseptic loosening left total knee arthroplasty. Please see complete history and physical examination. HOSPITAL COURSE: The patient underwent left total knee revision arthroplasty without complication. He tolerated the procedure well and was discharged to recovery room in stable condition. His postoperative course was relatively uneventful. His postoperative pain was reasonably well controlled with a combination of spinal anesthesia, adductor canal block, intraoperative joint injection, IV, and oral pain medications. He was started on Xarelto for DVT prophylaxis. He also utilized KANG stockings and SCDs for additional prophylaxis. His H&H was stable and did not require transfusion. His surgical drain was discontinued by postop day 2, surgical dressing will remain in place for approximately 7 days postoperative. He tolerated postop physical therapy reasonably well as he was bending his knee and ambulating appropriately. He was discharged home on day 1. He will continue his physical therapy at home. He will continue his Xarelto for DVT prophylaxis and follow up in our office in approximately 10-14 days for his initial postop evaluation.
== END 2018-11-19 14:52 | disposition home health service (06) ==
LOC: ASU 08:28 → 3E 15:32